=== PATIENT | female | born 1960 | race Two or more races ===

== ENCOUNTER 2021-09-30 12:00 | Inpatient (IN) | payer OTHER ==
[~2021-09-30] VITALS: Ht 152.4 cm; Wt 55.8 kg
[2021-09-30] MEDS ORDERED: ULTRAM50 MG PO (13:37)
[2021-09-30] MEDS ORDERED: COLACE100 MG PO (13:37)
[2021-10-07] MEDS ORDERED: ULTRACET PO (08:10)
[2021-10-07] MEDS ORDERED: INTESTINEX680 M1 PO (08:10)
[2021-10-07] MEDS ORDERED: HYOSCYAMINE0.125 M1 SL (08:10)
== END 2021-10-07 12:09 | disposition home or self-care (01) | DRG 329 ==
LOC: SURG 10-03 07:52 → O/R 10-03 07:52 → SURG 10-03 11:00
PROVIDERS: Obstetrics & Gynecology Gynecologic Oncology; ADMIT Surgery; ATTEND Surgery
PROC: 0DBU0ZZ Excision of Omentum, Open Approach (ICD-10-PCS; 2021-10-03)
PROC: 0DNL0ZZ Release Transverse Colon, Open Approach (ICD-10-PCS; 2021-10-03)
PROC: 0DJD8ZZ Inspection of Lower Intestinal Tract, Via Natural or Artificial Opening Endoscopic (ICD-10-PCS; 2021-10-03)
PROC: 0UT90ZZ Resection of Uterus, Open Approach (ICD-10-PCS; 2021-10-03)
PROC: 0UT70ZZ Resection of Bilateral Fallopian Tubes, Open Approach (ICD-10-PCS; 2021-10-03)
PROC: 0UT20ZZ Resection of Bilateral Ovaries, Open Approach (ICD-10-PCS; 2021-10-03)
PROC: 0DBW0ZZ Excision of Peritoneum, Open Approach (ICD-10-PCS; 2021-10-03)
PROC: 0TTB0ZZ Resection of Bladder, Open Approach (ICD-10-PCS; 2021-10-03)
PROC: 0DTN0ZZ Resection of Sigmoid Colon, Open Approach (ICD-10-PCS; principal; 2021-10-03 11:00)
PROC: 0DJD4ZZ Inspection of Lower Intestinal Tract, Percutaneous Endoscopic Approach (ICD-10-PCS; 2021-10-03 11:00)
DX: C19 Malignant neoplasm of rectosigmoid junction (principal); K65.8 Other peritonitis; C78.6 Secondary malignant neoplasm of retroperitoneum and peritoneum; C79.89 Secondary malignant neoplasm of other specified sites; C79.62 Secondary malignant neoplasm of left ovary; C79.11 Secondary malignant neoplasm of bladder; K56.699 Other intestinal obstruction unspecified as to partial versus complete obstruction; R18.0 Malignant ascites; N72 Inflammatory disease of cervix uteri; Z20.822 Contact with and (suspected) exposure to COVID-19